=== PATIENT | female | born 1955 ===

== ENCOUNTER 2017-11-14 13:59 | Inpatient (IN) | payer MEDICARE, MEDICAID ==
[2017-11-14] MEDS: metFORMIN* 500 MG TAB PO SCH ×2 (17:10→17:49)
[2017-11-14] MEDS: Atorvastatin* 20 MG TAB PO SCH ×2 (20:30→23:00)
[2017-11-14] MEDS: Benztropine TAB* 2 MG PO SCH ×2 (20:30→23:00)
[2017-11-14] MEDS: QUEtiapine TAB* 25 MG PO SCH (23:00)
[2017-11-15] MEDS: Omeprazole CAP* 20 MG PO SCH (08:26)
[2017-11-15] MEDS: Cholecalciferol TAB* 400 UNIT PO SCH (08:27)
[2017-11-15] MEDS: Aspirin TAB* 325 MG PO SCH (08:27)
[2017-11-15] MEDS: Lisinopril TAB* 10 MG PO SCH (08:27)
[2017-11-15] MEDS: metFORMIN* 500 MG TAB PO SCH ×2 (08:27→17:10)
[2017-11-15] MEDS: QUEtiapine TAB* 25 MG PO SCH ×3 (08:27→23:30)
[2017-11-15] MEDS: Benztropine TAB* 2 MG PO SCH ×2 (08:27→23:30)
[2017-11-15] MEDS: Al Hydrox/Mg Hydrox/Simet LIQ* 30 ML UDC PO PRN ×2 (15:26→22:04)
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
[2017-11-15] MEDS: Atorvastatin* 20 MG TAB PO SCH (23:30)
[2017-11-16] MEDS: Omeprazole CAP* 20 MG PO SCH (06:15)
[2017-11-16] MEDS: Aspirin TAB* 325 MG PO SCH (09:10)
[2017-11-16] MEDS: QUEtiapine TAB* 25 MG PO SCH ×3 (09:10→20:22)
[2017-11-16] MEDS: Lisinopril TAB* 10 MG PO SCH (09:10)
[2017-11-16] MEDS: Benztropine TAB* 2 MG PO SCH ×2 (09:10→20:21)
[2017-11-16] MEDS: Cholecalciferol TAB* 400 UNIT PO SCH (09:11)
[2017-11-16] MEDS: metFORMIN* 500 MG TAB PO SCH ×2 (09:11→17:36)
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
[2017-11-16] MEDS: Atorvastatin* 20 MG TAB PO SCH (20:21)
[2017-11-17] MEDS: Omeprazole CAP* 20 MG PO SCH (07:54)
[2017-11-17] MEDS: Aspirin TAB* 325 MG PO SCH (08:39)
[2017-11-17] MEDS: metFORMIN* 500 MG TAB PO SCH ×2 (08:40→17:04)
[2017-11-17] MEDS: Acetaminophen TAB* 325 MG PO PRN ×2 (08:40→15:22)
[2017-11-17] MEDS: QUEtiapine TAB* 25 MG PO SCH ×3 (08:41→20:56)
[2017-11-17] MEDS: Benztropine TAB* 2 MG PO SCH ×2 (08:41→20:56)
[2017-11-17] MEDS: Cholecalciferol TAB* 400 UNIT PO SCH (08:41)
[2017-11-17] MEDS: Lisinopril TAB* 10 MG PO SCH (08:42)
[2017-11-17] MEDS ORDERED: Fluphenazine Decanoate* 25 MG/ML 5 ML VIAL IM SCH (11:00)
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
[2017-11-17] MEDS: Atorvastatin* 20 MG TAB PO SCH (20:56)
[2017-11-18] MEDS: Omeprazole CAP* 20 MG PO SCH (08:59)
[2017-11-18] MEDS: Cholecalciferol TAB* 400 UNIT PO SCH (08:59)
[2017-11-18] MEDS: QUEtiapine TAB* 25 MG PO SCH ×3 (08:59→21:20)
[2017-11-18] MEDS: Aspirin TAB* 325 MG PO SCH (08:59)
[2017-11-18] MEDS: metFORMIN* 500 MG TAB PO SCH ×2 (08:59→17:52)
[2017-11-18] MEDS: Lisinopril TAB* 10 MG PO SCH (08:59)
[2017-11-18] MEDS: Benztropine TAB* 2 MG PO SCH ×2 (08:59→21:20)
[2017-11-18] MEDS ORDERED: Fluphenazine Decanoate* 25 MG/ML 5 ML VIAL IM SCH (11:00)
[2017-11-18] MEDS: Atorvastatin* 20 MG TAB PO SCH (21:20)
[2017-11-19] MEDS: Omeprazole CAP* 20 MG PO SCH (07:49)
[2017-11-19] MEDS: metFORMIN* 500 MG TAB PO SCH ×2 (08:17→16:48)
[2017-11-19] MEDS: QUEtiapine TAB* 25 MG PO SCH ×2 (08:17→13:28)
[2017-11-19] MEDS: Aspirin TAB* 325 MG PO SCH (08:17)
[2017-11-19] MEDS: Benztropine TAB* 2 MG PO SCH (08:18)
[2017-11-19] MEDS: Lisinopril TAB* 10 MG PO SCH (08:18)
[2017-11-19] MEDS: Cholecalciferol TAB* 400 UNIT PO SCH (08:18)
--- NOTE | 2017-11-19 18:40 | PN ---
Subjective - Subjective Date of Service: 11/19/17 Subjective: Sleep and mood are improving, reports resolution of AH, she denies side effects from prescribed meds. Per staff, she is adherent to unit's routines. Objective - Appearance Appearance: Healthy Appearing Dysmorphic Features: No Hygiene: Normal Grooming: Well Kept - Behavior Psychomotor Activities: Normal Exhibits Abnormal Movement: No - Attitude and Relatedness Attitude and Relatedness: Superficially Cooperative - Speech Quality: Unpressured Latencies: Normal Quantity: Terse - Mood Patient's Decription of Mood: "Okay" - Affect Observed Affect: Constricted Affect Consistent with: Dysphoria - Thought Process Patient's Thought Process: Coherent, Impoverished Thought Content: No Passive Wish, No Suicidal Planning, No Homicidal Ideation, No Paranoid Ideation - Sensorium Experiencing Hallucinations: No, Sensorium is Clear - Level of Consciousness Level of Consciousness: Alert Orientation: Yes Intact - Impulse Control Impulse Control: Intact - Insight and Judgement Insight and Judgement: Poor - Group Participation Particating in Group Activities: Yes - Medication Management Medication Management Adherence: Yes Assessment - Assessment Merits Inpatient Hospitalization: For Ongoing Evaluation, Consolidate Improvements, For Discharge Planning Inpatient DSM-V Dx: F25.0 Clinical Impression: Stabilizing in this structured setting. Plan - Plan Treatment Plan: Name: CHRIS OCHOA Birthdate: 1955 [id number] Medications: Current Medications Acetaminophen (Tylenol Tab*) 650 mg PO Q4H PRN PRN Reason: for pain; or Temp >101 F Last Admin: 11/17/17 15:22 Dose: 650 mg Al Hydrox/Mg Hydrox/Simethicone (Maalox Plus*) 30 ml PO Q4H PRN PRN Reason: INDIGESTION Last Admin: 11/15/17 22:04 Dose: 30 ml Aspirin (Aspirin Tab*) 325 mg PO DAILY [facility] Last Admin: 11/19/17 08:17 Dose: 325 mg Atorvastatin Calcium (Lipitor*) 20 mg PO 2100 [facility] Last Admin: 11/18/17 21:20 Dose: 20 mg Benztropine Mesylate (Cogentin Tab*) 2 mg PO BID [facility] Last Admin: 11/19/17 08:18 Dose: 2 mg Cholecalciferol (Vitamin D Tab*) 400 unit PO DAILY [facility] Last Admin: 11/19/17 08:18 Dose: 400 unit Fluphenazine Decanoate (Prolixin Decanoate*) 50 mg IM Q14D [facility] Last Admin: 11/18/17 11:41 Dose: 50 mg Lisinopril (Prinivil Tab*) 20 mg PO DAILY [facility] Last Admin: 11/19/17 08:18 Dose: 20 mg Metformin HCl (Glucophage*) 500 mg PO 0800,1700 [facility] Last Admin: 11/19/17 16:48 Dose: 500 mg Omeprazole (Prilosec Cap*) 20 mg PO DAILY@0600 [facility] Last Admin: 11/19/17 07:49 Dose: 20 mg Quetiapine Fumarate (Seroquel Tab*) 25 mg PO TID [facility] Last Admin: 11/19/17 13:28 Dose: 25 mg - Discharge Plan Discharge Plan: Outpatient Follow Up Outpatient Program: [facility]
[2017-11-20] MEDS: Atorvastatin* 20 MG TAB PO SCH ×2 (01:50→20:14)
[2017-11-20] MEDS: Benztropine TAB* 2 MG PO SCH ×3 (01:50→20:14)
[2017-11-20] MEDS: QUEtiapine TAB* 25 MG PO SCH ×4 (01:50→20:14)
[2017-11-20] MEDS: Cholecalciferol TAB* 400 UNIT PO SCH (08:37)
[2017-11-20] MEDS: Aspirin TAB* 325 MG PO SCH (08:37)
[2017-11-20] MEDS: metFORMIN* 500 MG TAB PO SCH ×2 (08:38→16:37)
[2017-11-20] MEDS: Lisinopril TAB* 10 MG PO SCH (08:38)
[2017-11-20] MEDS: Omeprazole CAP* 20 MG PO SCH (08:38)
[2017-11-20] MEDS: Acetaminophen TAB* 325 MG PO PRN (08:39)
[2017-11-20 11:09] VITALS: BP 127/57
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
--- NOTE | 2017-11-20 15:03 | PN ---
[facility]: Group Therapy Note - Service Type Service Type: 61149 Group Psychotherapy - Cognitive Behavioral Group Therapy ( CBT):Patient attended CBT programming this morning and presented with flat affect that did not vary with discussion. Although responsive to direct prompts to respond to questions, patient did not engage in spontaneous conversation.
[2017-11-21] MEDS: metFORMIN* 500 MG TAB PO SCH (07:41)
[2017-11-21] MEDS: Omeprazole CAP* 20 MG PO SCH (07:41)
[2017-11-21] MEDS: Aspirin TAB* 325 MG PO SCH (09:46)
[2017-11-21] MEDS: Benztropine TAB* 2 MG PO SCH (09:46)
[2017-11-21] MEDS: Lisinopril TAB* 10 MG PO SCH (09:46)
[2017-11-21] MEDS: QUEtiapine TAB* 25 MG PO SCH ×2 (09:46→14:14)
[2017-11-21] MEDS: Cholecalciferol TAB* 400 UNIT PO SCH (09:47)
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
== END 2017-11-21 12:45 | disposition home or self-care (01) | DRG 885 ==
LOC: BSU 17:08
PROVIDERS: ADMIT Psychiatry & Neurology Psychiatry; ATTEND Psychiatry & Neurology Psychiatry
PROC: GZHZZZZ Group Psychotherapy (ICD-10-PCS; principal; 2017-11-14)
DX: F20.9 Schizophrenia, unspecified (principal); E11.9 Type 2 diabetes mellitus without complications; I10 Essential (primary) hypertension; K21.9 Gastro-esophageal reflux disease without esophagitis; Z79.84 Long term (current) use of oral hypoglycemic drugs; Z79.82 Long term (current) use of aspirin; Z91.410 Personal history of adult physical and sexual abuse; Z81.8 Family history of other mental and behavioral disorders; Z56.0 Unemployment, unspecified
CPT/HCPCS: 36415; 80061; 83036; 90853; 99222; 99231; 99238; A9270-GY; J2680